=== PATIENT | male | born 1980 | race Caucasian/White ===

== ENCOUNTER 2018-12-08 16:20 | Emergency (ER) | payer OTHER ==
[~2018-12-08] VITALS: Ht 182.9 cm; Wt 89.8 kg
[2018-12-08 16:34] VITALS: BP 144/83
[2018-12-08] MEDS ORDERED: MELO7.5T29 PO (16:53)
[2018-12-08] MEDS ORDERED: PRED50TA PO (16:53)
[2018-12-08] MEDS ORDERED: ORPH-16 PO (16:53)
--- NOTE | 2018-12-08 16:53 | PHYS DOC ---
Past History Past Medical History: No Pertinent History, GERD Past Surgical History: Other Additional Past Surgical Histo: lumbar discectomy Smoking: Non-smoker Alcohol Use: Rarely Drug Use: None Adult General Chief Complaint Chief Complaint: BACK PAIN OR INJURY HPI HPI Patient is a 38-year-old male presents with low back pain. This started yesterday. 2 days ago he was doing cross fit workout with a lot of back e xercises to include kettle ball swings. As he was warming up yesterday he felt his back started to "seize up.". He tried to work through this, I used a foam roller, and had no improvement. He has taken 400 mg of ibuprofen several times without any improvement in symptoms. There has been no loss of bowel or bladder control. No fever. No numbness or tingling in his legs or feet. He has no history of IV or injection drug use/abuse. No personal history of cancer. Movement makes the discomfort worse. Holding still helps but does not fully alleviate the pain. Pain is moderate to severe.[] Review of Systems Review of Systems Constitutional: Denies fever or chills [] Eyes: Denies change in visual acuity, redness, or eye pain [] HENT: Denies nasal congestion or sore throat [] Respiratory: Denies cough or shortness of breath [] Cardiovascular: No chest pain or palpitations[] GI: Denies abdominal pain, nausea, vomiting, bloody stools or diarrhea [] : Denies dysuria or hematuria [] Musculoskeletal: See history of present illness[] Integument: Denies rash or skin lesions [] Neurologic: Denies headache, focal weakness or sensory changes [] Endocrine: Denies polyuria or polydipsia [] All other systems were reviewed and found to be within normal limits, except as documented in this note. Allergies Allergies Allergies Coded Allergies Type Severity Reaction Last Updated Verified No Known Drug Allergies 12/08/18 No Physical Exam Physical Exam Constitutional: Well developed, well nourished, moderate discomfort., non-toxic appearance. [] HENT: Normocephalic, atraumatic, bilateral external ears normal, oropharynx moist, no oral exudates, nose normal. [] Eyes: PERRLA, EOMI, conjunctiva normal, no discharge. [] Neck: Normal range of motion, no tenderness, supple, no stridor. [] Cardiovascular:Heart rate regular rhythm, no murmur [] Lungs & Thorax: Bilateral breath sounds clear to auscultation [] Abdomen: Bowel sounds normal, soft, no tenderness, no masses, no pulsatile masses. [] Skin: Warm, dry, no erythema, no rash. [] Back: Patient has lower back tenderness to palpation in the paraspinal musculature lumbar region. Decreased active range of motion secondary to the discomfort. Twisting and side bending to the left is better than twisting and side bending to the right. Significant only decreased forward bending. Patient has normal gait. He is distally neurovascularly intact. No CVA tenderness. [] Extremities: No tenderness, no cyanosis, no clubbing, ROM intact, no edema. [] Neurologic: Alert and oriented X 3, normal motor function, normal sensory function, no focal deficits noted. [] Psychologic: Affect normal, judgement normal, mood normal. [] Current Patient Data Vital Signs Vital Signs Date Time Temp Pulse Resp B/P (MAP) Pulse Ox O2 Delivery O2 Flow Rate FiO2 12/08/18 16:34 97.6 80 22 97 Room Air EKG EKG [] Radiology/Procedures Radiology/Procedures [] Course & Med Decision Making Course & Med Decision Making Pertinent Labs and Imaging studies reviewed. (See chart for details) Medical decision making: Patient with low back pain without trauma. Believe this to be muscular based on physical exam findings. No evidence of cauda equina syndrome. No red flags indicating need for imaging at this time. Discussed plan to include NSAIDs, steroids, and muscle relaxants with the patient. Also voiced myofascial release with tennis ball or lacrosse ball, he had been doing this with a foam roller as noted in the history of present illness. He voiced understanding. All questions were answered. He was released in improved condition.[] Dragon Disclaimer Dragon Disclaimer This electronic medical record was generated, in whole or in part, using a voice recognition dictation system. Departure Departure: Impression: Primary Impression: Low back pain Disposition: 01 HOME, SELF-CARE Condition: IMPROVED Referrals: PCP,NO (PCP) Patient Instructions: Low Back Strain with [facility] Additional Instructions: Follow-up on post with the medical clinic. Take the medication as prescribed. Return to the ER if worsening pain, loss of bowel or bladder control, or any other concerns. Scripts Prednisone (PREDNISONE) 50 Mg Tablet 1 TAB PO DAILY for INFLAMMATION, #5 TAB Prov: GINA SANTOYO DO 12/08/18 Orphenadrine Citrate (ORPHENADRINE CITRATE) 100 Mg Tablet.er 100 MG PO BID for BACK PAIN, #20 TAB.SR Prov: GINA SANTOYO DO 12/08/18 Meloxicam (MELOXICAM) 7.5 Mg Tablet 7.5 MG PO DAILY for PAIN, #20 TAB Prov: GINA SANTOYO DO 12/08/18 Problem Qualifiers Primary Impression: Low back pain Chronicity: acute Back pain laterality: bilateral Sciatica presence: without sciatica Qualified Codes: M54.5 - Low back pain GINA SANTOYO DO Dec 08, 2018 16:53
== END 2018-12-08 16:55 | disposition home or self-care (01) ==
LOC: ER 16:20
DX: M54.5 Low back pain (principal); K21.9 Gastro-esophageal reflux disease without esophagitis
CPT/HCPCS: 99283